=== PATIENT | male | born 1990 | race Caucasian/White ===

== ENCOUNTER 2019-07-16 10:39 | Emergency (ER) | payer OTHER ==
[~2019-07-16] VITALS: Ht 177.8 cm; Wt 89.9 kg
[2019-07-16 10:58] VITALS: Ht 177.8 cm; Wt 89.9 kg
[2019-07-16 14:01] VITALS: BP 120/76
== END 2019-07-16 14:01 | disposition home or self-care (01) ==
LOC: ED 10:39
DX: J18.9 Pneumonia, unspecified organism (principal)
CPT/HCPCS: J0696

== ENCOUNTER 2019-12-25 11:20 | Emergency (ER) | payer OTHER ==
[~2019-12-25] VITALS: Ht 177.8 cm; Wt 86.2 kg
[2019-12-25 11:27] VITALS: Ht 177.8 cm; Wt 86.2 kg
[2019-12-25 12:10] VITALS: BP 141/96
== END 2019-12-25 12:10 | disposition home or self-care (01) ==
LOC: ED 11:20
DX: U07.1 COVID-19 (principal); B34.9 Viral infection, unspecified
CPT/HCPCS: U0003-CS

== ENCOUNTER 2020-03-24 20:38 | Emergency (ER) | payer OTHER ==
[~2020-03-24] VITALS: Ht 177.8 cm; Wt 86.2 kg
[2020-03-24 20:40] VITALS: Ht 177.8 cm; Wt 86.2 kg
[2020-03-24 22:59] LABS: BASOPHIL % 0.7 % (0-2); CHLORIDE SERUM 103 mmol/L (98-107); CREATININE SERUM 1.2 mg/dL (0.7-1.3); GFR1 > 60 mL/min; GLUCOSE SERUM 101 mg/dL (74-106); PLATELET COUNT 213 x10^3mcL (130-400); POTASSIUM SERUM 3.8 mmol/L (3.5-5.1); RED CELL DISTRIBUTION WIDTH 14.2 % (11.5-14.5); SODIUM SERUM 141 mmol/L (136-145)
[2020-03-24 23:07] LABS: ALKALINE PHOSPHATASE 86 U/L (46-116); ALT/SGPT 34 U/L (16-63); AST/SGOT 22 U/L (15-37); BILIRUBIN TOTAL 0.44 mg/dL (0.20-1.00); TOTAL PROTEIN, SERUM 7.9 g/dL (6.4-8.2)
[2020-03-25 00:29] VITALS: BP 130/86
== END 2020-03-25 00:31 | disposition home or self-care (01) ==
LOC: ED 20:38
PROVIDERS: Emergency Medicine
DX: R07.89 Other chest pain (principal); R11.10 Vomiting, unspecified; R19.7 Diarrhea, unspecified; F14.10 Cocaine abuse, uncomplicated; Z20.828 Contact with and (suspected) exposure to other viral communicable diseases
CPT/HCPCS: J2405; J7030; Q0092